=== PATIENT | female | born 1990 | race Caucasian/White ===

== ENCOUNTER 2020-03-08 23:55 | Emergency (ER) | payer OTHER ==
[~2020-03-08] VITALS: Ht 157.5 cm; Wt 68.0 kg
[2020-03-09] MEDS ORDERED: IV NS 0.9% 1,000 ML BAG IV ONE
[2020-03-09] MEDS ORDERED: ONDANSETRON HCL/PF - ER 4 MG/2 ML VIAL IV ONE
[2020-03-09] MEDS ORDERED: ONDANSETRON HCL/PF 4 MG/2 ML VIAL ONE (00:03)
--- NOTE | 2020-03-09 00:09 | NUR ---
DIRECTOR OF VALUATION AT BEDSIDE FOR LABS. EMT AT BEDSIDE FOR EKG. AWAITING URINE SAMPLE.
[2020-03-09 00:21] LABS: BASOPHILS # (AUTO) 0.1 /CMM (0.0-0.2); BASOPHILS % (AUTO) 0.8 % (0.0-2.0); EOSINOPHILS % (AUTO) 1.1 % (0.0-6.0); HEMATOCRIT 36 % (33-45); HEMOGLOBIN 12.2 g/dL (11.5-14.8); LYMPHOCYTES # (AUTO) 1.3 /CMM (0.8-4.8); MEAN CORPUSCULAR HGB CONC 34 g/dl (31.0-36.0); MEAN CORPUSCULAR VOLUME 92 fL (82-100); MONOCYTES # (AUTO) 0.6 /CMM (0.1-1.30); MONOCYTES % (AUTO) 8.4 % (2.0-12.0); NEUTROPHILS # (AUTO) 4.7 /CMM (1.8-8.9); NEUTROPHILS % (AUTO) 69.7 % (43.0-81.0); PLATELET COUNT (AUTO) 304 /CMM (150-450); WHITE BLOOD COUNT (AUTO) 6.7 K/uL (4.3-11.0)
[2020-03-09 00:29] LABS: CALCIUM, SERUM 8.9 mg/dL (8.5-10.1); CARBON DIOXIDE 28 mmol/L (21-32); CHLORIDE 102 mmol/L (98-107); CREATININE 0.7 mg/dL (0.6-1.3); GLUCOSE 104 mg/dL (74-106); POTASSIUM 4.3 mmol/L (3.5-5.1); SODIUM SERUM 137 mmol/L (136-145); UREA NITROGEN, BLOOD 11 mg/dL (7-18)
[2020-03-09] MEDS ORDERED: IBUPROFEN 600 MG TABLET PO ONE ×2 (01:00→01:07)
--- NOTE | 2020-03-09 01:00 | NUR ---
CALLED [facility] AND INFORMED PT WILL RETURN TO FACILITY Addendum: 03/09/20 at 0153 by KD PATRICIA WITH LOREN FROM [facility]
--- NOTE | 2020-03-09 01:14 | NUR ---
Patient is resting comfortably in bed. Easily aroused. VSS.
--- NOTE | 2020-03-09 01:45 | NUR ---
CALLED CALL THE [facility] FOR TRANSPORTATION. PENDING ETA. CONFIRMATION #[id number]
--- NOTE | 2020-03-09 01:57 | NUR ---
[facility] ETA 45 MIN
--- NOTE | 2020-03-09 02:02 | NUR ---
IV removed. Catheter intact and site benign. Pressure and 4x4 applied to site. No bleeding noted.
--- NOTE | 2020-03-09 02:04 | NUR ---
PT AMBULATED TO RESTROOM WITH STEADY GAIT.
[2020-03-09 02:41] VITALS: BP 127/71
--- NOTE | 2020-03-09 02:41 | NUR ---
REPORT GIVEN TO [facility]. PT BEING TRANSPORTED BACK TO [facility].
== END 2020-03-09 02:52 ==
LOC: ER 23:56
DX: R42 Dizziness and giddiness (principal); R53.1 Weakness; Z98.890 Other specified postprocedural states
CPT/HCPCS: 36415; 71045; 80048; 84484; 85025; 93005 ×2; 96361; 96374; 99285; J2405 ×2; J7030